=== PATIENT | male | born 1955 | race African-American/Black ===

== ENCOUNTER 2023-12-08 16:50 | Emergency (ER) | payer OTHER ==
[2023-12-08] MEDS ORDERED: FENTANYL CITRATE/PF 50 MCG/ML VIAL ONE (16:56)
[2023-12-08] MEDS ORDERED: MAGNESIUM SULFATE IN WATER 2 GM/50 ML IVPB IVPB ONE (16:58)
[2023-12-08] MEDS: MAGNESIUM SULF 50% (8.12 MEQ/2 ML-1 GM VIAL) IVPB ONE (17:00)
[2023-12-08] MEDS ORDERED: METOPROLOL TARTRATE 5 MG/5 ML VIAL ONE (17:03)
[2023-12-08] MEDS: METOPROLOL TARTRATE 5 MG/5 ML VIAL IVPUSH ONE (17:05)
[2023-12-08 17:29] VITALS: BMI 24.3
[2023-12-08 17:51] LABS: BASO % 0.6 % (0-2.0); EOS % 0.9 % (0-4.5); HEMATOCRIT 39.3 % (35.4-49); HEMOGLOBIN 13.6 GM/dL (11.7-16.9); LYMPH % 21.3 % (8-40); MCH 31.2 pg (25.7-33.7); MCHC 34.7 g/dl (32.0-35.9); MEAN CELL VOLUME 90.1 fl (80-96); MEAN PLT VOLUME 7.9 fl (7.5-11.1); MONO % 7.5 % (3.8-10.2); NEUT % 69.7 % (42.8-82.8); PLATELET COUNT 188 10^3/uL (134-434); RBC 4.36 M/mm3 (4.00-5.60); RDW 13.6 % (11.9-15.9); WHITE BLOOD COUNT 11.7 K/mm3 (4.0-10.0)
[2023-12-08 17:58] LABS: PROTHROMBIN TIME (PATIENT) 11.5 SEC (9.7-13.0)
[2023-12-08 18:01] LABS: ACTIVATED PTT 31.5 SECONDS (25.2-36.5)
[2023-12-08 18:25] LABS: POTASSIUM 4.3 mmol/L (3.5-5.1)
[2023-12-08 18:27] LABS: CALCIUM 9.3 mg/dL (8.5-10.1)
[2023-12-08 18:28] LABS: ALBUMIN 3.6 g/dl (3.4-5.0); BLOOD UREA NITROGEN 10.8 mg/dL (7-18); MAGNESIUM 2.6 mg/dL (1.8-2.4)
[2023-12-08 18:31] LABS: CREATININE 1.2 mg/dL (0.55-1.3)
[2023-12-08 18:32] LABS: BILIRUBIN,TOTAL 0.4 mg/dL (0.2-1)
[2023-12-08 18:33] LABS: TOT PROT 7.4 g/dl (6.4-8.2)
[2023-12-09 04:38] VITALS: BP 158/87; PULSE 64; RESP 17; TEMP 98.1
== END 2023-12-08 21:10 | disposition short-term general hospital (02) ==
LOC: JER 16:50
PROC: 3E033NZ Introduction of Analgesics, Hypnotics, Sedatives into Peripheral Vein, Percutaneous Approach (ICD-10-PCS; principal; 2023-12-08)
PROC: 3E033GC Introduction of Other Therapeutic Substance into Peripheral Vein, Percutaneous Approach (ICD-10-PCS; 2023-12-08)
PROC: 3E033GC Introduction of Other Therapeutic Substance into Peripheral Vein, Percutaneous Approach (ICD-10-PCS; 2023-12-08)
DX: T82.897A Other specified complication of cardiac prosthetic devices, implants and grafts, initial encounter (principal)
CPT/HCPCS: 36415; 71045-TC-FY; 80053; 83735; 84484; 85025; 85610; 85730; 93005; 93010; 99291

== ENCOUNTER 2024-09-21 11:41 | Emergency (ER) | payer OTHER ==
[2024-09-21 12:07] VITALS: RESP 18; BMI 24.3
[2024-09-21 12:38] LABS: ABSOLUTE IMMATURE GRANULOCYTES 0.02 x10^3/uL (0.0-0.031); BASOPHILS # 0.02 x10^3/uL (0.01-0.08); EOSINOPHIL % 2.6 % (0.8-7.0); EOSINOPHILS # 0.13 x10^3/uL (0.04-0.54); HEMATOCRIT 42.1 % (40.1-51.0); HEMOGLOBIN 13.9 g/dL (13.7-17.5); MEAN CELL VOLUME 94.8 fl (79.0-92.2); MEAN PLT VOLUME 10.5 fl (9.4-12.4); MONOCYTE # 0.35 x10^3/uL (0.30-0.82); MONOCYTE % 6.9 % (5.3-12.2); PLATELET COUNT 178 x10^3/uL (163-337); RDW 12.5 % (12.2-16.4)
[2024-09-21 12:59] LABS: POTASSIUM 4.5 mmol/L (3.5-5.1)
[2024-09-21 13:00] LABS: ALBUMIN 3.9 g/dl (3.4-5.0); BLOOD UREA NITROGEN 13.1 mg/dL (7-18); CALCIUM 10.2 mg/dL (8.5-10.1)
[2024-09-21 13:04] LABS: CREATININE 1.2 mg/dL (0.55-1.3)
[2024-09-21 13:05] LABS: BILIRUBIN,TOTAL 0.6 mg/dL (0.2-1); TOT PROT 7.8 g/dl (6.4-8.2)
[2024-09-21] MEDS ORDERED: ASPIRIN 81 MG CHEWABLE TABLETS PO ONE (18:20)
[2024-09-21] MEDS ORDERED: CLOPIDOGREL BISULFATE 75 MG TABLET (FP) PO ONE (18:20)
[2024-09-21 18:57] VITALS: BP 131/84; PULSE 59; TEMP 98.7
== END 2024-09-21 18:57 | disposition home or self-care (01) ==
LOC: JER 11:41
DX: R93.89 Abnormal findings on diagnostic imaging of other specified body structures (principal); I65.29 Occlusion and stenosis of unspecified carotid artery; R42 Dizziness and giddiness
CPT/HCPCS: 36415; 70450-TC; 70496-TC; 70498-TC; 80053; 85025; 93005; 93010; 99285-25; Q9967